=== PATIENT | male | born 2000 | race Caucasian/White ===

== ENCOUNTER 2021-01-01 17:55 | Observation (INO) ==
[2021-01-01] MEDS ORDERED: *HR* HYDROmorphone (PF) 1 MG/ML SYRINGE IVP PRN (21:21)
[2021-01-01] MEDS ORDERED: Albuterol 2.5 MG/3 ML NEBULIZER IH PRN (21:21)
[2021-01-01] MEDS ORDERED: Acetaminophen IV 1,000 MG/100 ML BAG IVPB ONE (21:21)
[2021-01-01] MEDS ORDERED: *HR* FentaNYL (PF) 100 MCG/2 ML VIAL IVP PRN (21:21)
[2021-01-01] MEDS ORDERED: Naloxone 0.4 MG/ML INJ IVP PRN (21:21)
[2021-01-01] MEDS ORDERED: Nitroglycerin 0.4 MG TAB.SUBL SL PRN (21:21)
[2021-01-01] MEDS ORDERED: Ondansetron 4 MG/2 ML VIAL IVP PRN ×2 (21:21→22:04)
[2021-01-01] MEDS ORDERED: *HR* FentaNYL (PF) 100 MCG/2 ML VIAL ONE (21:39)
[2021-01-01] MEDS ORDERED: *HR* Propofol 200 MG/20 ML VIAL IVP ONE (21:39)
[2021-01-01] MEDS ORDERED: *HR* Midazolam HCl 2 MG/2 ML VIAL ONE (21:39)
[2021-01-01] MEDS ORDERED: Lidocaine -MPF 2% 2 ML VIAL ONE (21:39)
[2021-01-01] MEDS ORDERED: Ondansetron 4 MG/2 ML VIAL ONE (21:39)
[2021-01-01] MEDS ORDERED: *HR* HYDROMORPHONE 2 MG/ML VIAL ONE (21:39)
[2021-01-01] MEDS ORDERED: *HR* Rocuronium Bromide 50 MG/5 ML VIAL ONE ×2 (21:39→21:43)
[2021-01-01] MEDS ORDERED: *HR* Succinylcholine 200 MG/10 ML VIAL IVP ONE (21:39)
[2021-01-01] MEDS ORDERED: *HR* OxyCODONE/APAP 5/325 TABLET PO PRN (22:04)
[2021-01-02] MEDS ORDERED: *HR* OxyCODONE/APAP 5/325 TABLET PO PRN (00:05)
[2021-01-02] MEDS ORDERED: Ondansetron 4 MG/2 ML VIAL IVP PRN (00:05)
[2021-01-02] MEDS: 0.9 % Sodium Chloride 1,000 ML IVC SCH ×2 (00:51→06:27)
[2021-01-02 04:05] VITALS: TEMP 97.7
[2021-01-02] MEDS ORDERED: Ketorolac 15 MG/ML VIAL IVP SCH ×2 (06:00)
[2021-01-02 06:47] LABS: Basophils % 0.1 %; Hematocrit 39.4 % (37.5-50.1); Hemoglobin 13.3 g/dL (12.9-16.9); Immature Granulocytes % 0.4 % (0-4); Lymphocytes # 0.6 K/mcL (0.6-4.6); Lymphocytes % 6.8 %; Mean Corpuscular HGB Conc 33.8 g/dL (31.6-35.5); Mean Corpuscular Volume 94.7 fL (83.0-100.0); Monocytes # 0.1 K/mcL (0.0-1.3); Monocytes % 1.2 %; Neutrophils # 7.4 K/mcL (1.6-8.9); Platelet Count 178 K/mcL (140-400); Red Blood Count 4.16 M/mcL (4.19-5.50); Red Cell Distribution Width 12.3 % (11.5-14.5); Segmented Neutrophils % 91.5 %; White Blood Count 8.1 K/mcL (4.3-11.1)
[2021-01-02 07:52] VITALS: BP 120/74; PULSE 85; O2SAT 98
[2021-01-02] MEDS ORDERED: Piperacillin/Tazobactam 3.375 GM in 0.9 % Sodium Chloride Mini Bag 100 ML IVPB SCH ×2 (08:00)
== END 2021-01-02 10:36 | disposition home or self-care (01) ==
LOC: 3BNU 17:55 → EMEROOARM 17:55 → 3BNU 21:20
PROVIDERS: ADMIT Surgery; ATTEND Surgery